=== PATIENT | female | born 1970 | race Caucasian/White ===

== ENCOUNTER 2018-09-08 15:48 | Emergency (ER) | payer MEDICAID, OTHER ==
[~2018-09-08] VITALS: Ht 170.2 cm; Wt 66.0 kg
--- NOTE | 2018-09-08 15:57 | NUR ---
PT REFUSES WHEELCHAIR
[2018-09-08 16:21] LABS: BASOPHILS # (AUTO) 0.01 x10^3/uL (0-0.1); BASOPHILS % (AUTO) 0 % (0-1); EOSINOPHILS # (AUTO) 0.08 x10^3/uL (0-0.4); EOSINOPHILS % (AUTO) 1 % (1-7); LYMPHOCYTES # (AUTO) 2.45 x10^3/uL (1-3.4); LYMPHOCYTES % (AUTO) 30 % (22-44); MD NO; MEAN CORPUSCULAR HEMOGLOBIN 33.1 pg (27.0-34.8); MEAN CORPUSCULAR HGB CONC 33.4 g/dL (32.4-35.8); MEAN CORPUSCULAR VOLUME 98.9 fL (80-100); MEAN PLATELET VOLUME 7.2 fL (7.4-10.4); MONOCYTES # (AUTO) 0.55 x10^3/uL (0.2-0.8); MONOCYTES % (AUTO) 7 % (2-9); NEUTROPHILS # (AUTO) 5.01 x10^3/uL (1.8-6.8); NEUTROPHILS % (AUTO) 62 % (42-75); PLATELET COUNT 299 x10^3/uL (130-400); RED CELL DISTRIBUTION WIDTH 14.2 % (9.6-15.2)
--- NOTE | 2018-09-08 16:30 | NUR ---
[employer] MOLD: PT TO ROOM FROM [facility]
[2018-09-08 16:31] LABS: ALBUMIN 4.2 g/dL (3.4-5.0); ANION GAP 6 mmol/L (5-15); CALCIUM 8.8 mg/dL (8.5-10.1); CHLORIDE 108 mmol/L (98-107); CREATININE 0.93 mg/dL (0.55-1.02)
--- NOTE | 2018-09-08 16:48 | NUR ---
LATE NOTE FOR 1634: Pt resting on gurney. Pt connected to NIBP cuff, continous pulse ox, and panel monitor. NADN. Pt c/o syncope on Saturday and Saturday with GLF. Pt unaware if she had any trauma. Pt states, "I just feel really dizzy and light headed and then I pass out. It happened once to me before and my girlfriend said I stopped breathing and she started doing CPR on me. I don't like to take pills, I use marijuana for my right sciatic leg pain." Pt denies cp, sob, n/v/d, or trauma. CMS intact. Bedrails up x 2. Warm blanket provided. Call light within reach. No other needs requested at this time.
--- NOTE | 2018-09-08 17:14 | NUR ---
Provided bedside report to LINA Hernandez. All questions answered. LINA Hernandez to assume care of pt. GABY.
[2018-09-08 17:45] LABS: FREE T4 (FREE THYROXINE) 0.84 ng/dL (0.76-1.46); TROPONIN I < 0.015 ng/mL (0.000-0.045)
[2018-09-08 18:00] VITALS: BP 132/70
--- NOTE | 2018-09-08 18:03 | NUR ---
Pt c/o left foot pain, bruising, swelling s/p GLF saturday, pt requesting xray, states MD aware. vss. Pt denies dizziness, sob or heart palpitations at this time. Ambulates w/ steady gait to BR. SR on monitor.
--- NOTE | 2018-09-08 19:51 | NUR ---
Splint placed to left ankle, pt currently standing at bedside, states "my back hurts, standing is more comfortable", education provided for elevating extremity, offload pressure, verbalizes understanding. Vitals remain stable, pain tolerable at this time.
--- NOTE | 2018-09-08 20:12 | NUR ---
RECEIVED REPORT FROM LINA ARNOLD TO ASSUME CARE OF PT. PT. WAS GOING TO BE ADMIT BUT IS REFUSING TO STAY IN THE HOSPITAL OVERNIGHT. STATES "I'LL COME BACK IF IT HAPPENS AGAIN." DR. MCCONNELL MADE AWARE OF THIS. DR. MCCONNELL IN TO DISCUSS POC WITH PT. PT. TO BE D/C AFTER THAT.
== END 2018-09-08 20:22 | disposition home or self-care (01) ==
LOC: ED 20:11 → UNDOADMIN 20:12 → EDIP 20:12 → ED 20:22
DX: R55 Syncope and collapse (principal); R51 Headache; R07.89 Other chest pain; M54.9 Dorsalgia, unspecified; G89.29 Other chronic pain; S90.02XA Contusion of left ankle, initial encounter; S09.90XA Unspecified injury of head, initial encounter; X58.XXXA Exposure to other specified factors, initial encounter; Y93.89 Activity, other specified; Y92.89 Other specified places as the place of occurrence of the external cause; Y99.8 Other external cause status
CPT/HCPCS: 29515; 36415; 71045; 80048; 82040; 84439; 84443; 84481; 84484; 85025; 93005; 99284